=== PATIENT | female | born 2005 | race Caucasian/White ===

== ENCOUNTER 2024-11-16 20:15 | Emergency (ER) | payer OTHER, SELFPAY ==
[2024-11-16 20:16] VITALS: BMI 29.7
--- NOTE | 2024-11-16 20:31 | PD.EDFALL ---
ED Fall Injury RME/HPI General Chief Complaint: Fall Stated Complaint: FALL CHIN R HAND AND L KNEE Time Seen by Provider: 11/16/24 20:19 Arrival date/time: 11/16/24 20:15 RME / HPI RME / HPI Narrative: This section includes all my notes and documentations, including HPI, PE, and ED course. Prudencio Long MD HPI: 19yo female here for a fall a few hours ago. Patient got caught up in her dog's leash and was pulled out of her wheelchair. She fell forward. No loss of consciousness. She landed on her chin and right wrist and left knee. Patient has chin pain, right wrist pain, and left knee pain. No chest pain or abdominal pain. No other complaints reported. ROS: All negative except as documented in HPI. Physical Exam: General: Alert and oriented. In obvious pain. Eyes: Conjunctivae and lids clear. EOMI. PERRL. ENT: No signs of head trauma. Neck: Supple. No tenderness. Heart: RRR. Lungs: No respiratory distress. Good air movement. No rhonchi, wheezing, rales. Chest: No tenderness. Abdomen: Soft and nontender. Normal bowel sounds. No distension. No rebound or guarding. Back: No tenderness. Skin: Warm and dry. On her chin, there is a 1.5 cm full skin thickness laceration gaping open. Neuro: Alert and oriented X 3. Cranial Nerves II-XII grossly intact. No peripheral motor deficits. Musculoskeletal: Right wrist and left knee are tender on palpation. All other major joints and bones are not tender with no limited ROM. I reviewed all diagnostic test results. My interpretation of the left knee x-ray is NAD. My interpretation of the right wrist x-ray is NAD. My review of the CT facial bones report is NAD. My review of the CT cervical spine report is NAD. Blood tests are unremarkable. At this point, diagnoses include Chin laceration, Right wrist sprain, and Contusion of left knee. Treatment here included right wrist splint, wound care, Morphine, Toradol, Tdap, Bacitracin, NS, and Ancef. Recommend outpatient management. Significant improvement noted. Based on my best medical judgment, made decision no further evaluation or treatment indicated at this time. Patient understands and agrees to the discharge instructions customized and printed, see below. Discharge Instructions from Dr. Long printed for you: 1. Fortunately, there is no very serious injury. Such as brain injury or broken bone or internal organ injury. 2. The chin laceration was repaired with 3 stitches. -- Keep the current dressing intact for 24 hours. -- After 24 hours, change the dressing once daily. -- First remove the dressing gently. If it does not come off easily, run water through it until it comes off easily. -- Then gently wash with soap and water. -- After completely drying, apply antibiotic ointment and new dressing. -- See your doctor or return here in 5 days for suture removal. Total of 3 stitches. 3. For the right wrist sprain, wear the wrist splint for 3 days for help needed to heal. Apply ice for 20 minutes every 2-3 hours today and tomorrow. Ibuprofen 800 mg every 6-8 hours today and tomorrow to decrease inflammation then as needed. Elevate above the heart level for 3 days as much as possible. Placing your right hand on your head is a good method. 4. For your left knee contusion, decreased weightbearing using a stick or cane and elevate above the waist level for 3 days. Apply ice for 20 minutes every 2-3 hours today and tomorrow. Tylenol with codeine for severe pain. 5. Wound care of your multiple skin abrasions as instructed in the attached handout. Take Keflex to prevent infection. 6. See a private doctor on 11/18/2024 for recheck and further care, to make sure you are healing without any complications. Ask for help until you are completely better. 7. Seek immediate medical care with worsening or with any concerns. Prudencio Long MD Related Data Previous Rx's ?Medication ?Instructions ?Recorded acetaminophen 300 mg-codeine 30 mg 2 tab PO Q8H PRN pain #20 tabs 11/16/24 tablet cephalexin 500 mg capsule 500 mg PO BID 3 days #6 caps 11/16/24 ibuprofen 800 mg tablet 800 mg PO Q8H PRN pain #30 tabs 11/16/24 Allergies Allergy/AdvReac Type Severity Reaction Status Date / Time No Known Allergies Allergy Verified 11/16/24 20:21 Review of Systems Review of Systems Systems Reviewed: All systems reviewed, normal except as documented Past Medical History Social History SMOKING STATUS: Never smoker ED Exam Narrative Physical exam: As noted in HPI. Course Quality Measures none Orders Category Date Time Status Miscellaneous Nursing Order NOW Care 11/16/24 21:59 Completed Saline [Insert IV] NOW Care 11/16/24 20:34 Completed Splint / Immobilizer STAT Care 11/16/24 21:59 Completed Wound Care [Wound Care] NOW Care 11/16/24 20:[address] cervical spine wo con Stat Exams 11/16/24 20:[address] facial bones wo con Stat Exams 11/16/24 20:36 Completed XR knee LT 3V Stat Exams 11/16/24 20:37 Completed XR wrist comp RT min 3V Stat Exams 11/16/24 20:37 Completed BMP [Basic Metabolic Panel] Stat Lab 11/16/24 21:16 Completed CBC Stat Lab 11/16/24 21:16 Completed Magnesium Stat Lab 11/16/24 21:16 Completed PT [Prothrombin Time with INR] Stat Lab 11/16/24 21:16 Completed PTT [Partial Thromboplastin Time] Stat Lab 11/16/24 21:16 Completed Bacitracin Oint pkt Med 11/16/24 20:34 Discontinued 1 gm TOP X1 ONE Ketorolac Inj [Toradol Inj] Med 11/16/24 20:34 Discontinued 30 mg IVP X1 ONE Morphine Inj Med 11/16/24 20:34 Discontinued 4 mg IVP X1 ONE Sodium Chloride 0.9% 1000 ml [Ns] 1,000 ml Med 11/16/24 20:34 Discontinued IV 999 mls/hr TET,DIP/PERT AC (Adult)-Tdap [Boostrix Adult (Tdap) Med 11/16/24 20:34 Discontinued Vacc] 0.5 ml IMI .ONCE ONE ceFAZolin/D5W 2 GM IV [Ancef 2gm Ivpb] Med 11/16/24 20:34 Discontinued 2 gm in 100 ml IV X1 Vital Signs Vital signs: Vital Signs Temperature 98.9 F 11/16/24 20:32 Pulse Rate 90 11/16/24 20:32 Respiratory Rate 18 11/16/24 20:32 Blood Pressure 133/87 H 11/16/24 20:32 Pulse Oximetry (%) 100 11/16/24 20:32 Oxygen Delivery Method Room Air 11/16/24 20:32 PROCEDURES: Laceration Laceration 1: Site: face (chin) Size (cm): 1.5 Description: linear Depth: simple, single layer Local Anesthetic: lidocaine 1% Amount of anesthesia used (mL): 3 Pre-repair: irrigated extensively Skin layer closed with: nylon Suture size (cm): 4-0 Number of sutures: 3 Technique: simple, interrupted Fall MDM Narrative MDM Narrative:: 19yo female here for a fall. Patient got caught up in her dog's leash and was pulled out of her wheelchair. No loss of consciousness. Patient has chin pain, right wrist pain, and left knee pain. No chest pain or abdominal pain. No other complaints reported. Patient data External records reviewed:: [facility] previous records (Per chart review, patient has no previous ED visits or admissions to this facility.) Clinical information provided by:: patient Social determinants that could affect healthcare access:: none Patient has the following chronic illnesses:: POTS How is presenting disease/condition affected by chronic disease/condition?: uneffected by Evaluation data The following diagnostics were reviewed and interpreted by me:: lab results and radiology exam(s) Lab and/or radiology exams considered but not ordered:: none Interpretation Summary: I reviewed all diagnostic test results. My interpretation of the left knee x-ray is NAD. My interpretation of the right wrist x-ray is NAD. My review of the CT facial bones report is NAD. My review of the CT cervical spine report is NAD. Blood tests are unremarkable. Medications / Prescriptions Medications or Prescriptions considered but not ordered:: none Medication administrations:: Medication Administration History Discontinued Medications Bacitracin (Bacitracin Oint 1 Gm Packet) 1 gm TOP X1 ONE Stop: 11/16/24 20:35 Last Admin: 11/16/24 21:27 Dose: 1 gm Documented By: DT Diphtheria/Tetanus/Acell Pertussis (Diphth,Pertuss(Acell),Tet Vac 0.5 Ml Syr- Adult) 0.5 ml IMi .ONCE ONE Stop: 11/16/24 20:35 Last Admin: 11/16/24 21:34 Dose: 0.5 ml Documented By: DT Cefazolin Sodium (Ancef 2gm Ivpb) 2 gm in 100 mls @ 200 mls/hr IV X1 ONE Stop: 11/16/24 21:03 Last Infusion: 11/16/24 21:50 Dose: Infused Documented By: Admin: 11/16/24 21:20 Dose: 200 mls/hr Documented By: DT Sodium Chloride (Ns) 1,000 mls @ 999 mls/hr IV .Q1H1M ONE Stop: 11/16/24 21:34 Last Infusion: 11/16/24 22:24 Dose: Infused Documented By: Admin: 11/16/24 21:18 Dose: 999 mls/hr Documented By: DT Ketorolac Tromethamine (Ketorolac Inj 30 Mg/Ml Vial) 30 mg IVP X1 ONE Stop: 11/16/24 20:35 Last Admin: 11/16/24 21:24 Dose: 30 mg Documented By: DT Morphine Sulfate (Morphine Sulf Inj 10 Mg/Ml Vial) 4 mg IVP X1 ONE Stop: 11/16/24 20:35 Last Admin: 11/16/24 21:25 Dose: 4 mg Documented By: DT Morphine, Toradol, Tdap, Bacitracin, NS, Ancef Consultations Consultation(s) initiated? (list below): No Diagnosis Fall Differential Diagnosis: syncope, dislocation of shoulder region, fracture of wrist, compression fracture, concussion with loss of consciousness, concussion without loss of consciousness and other Most likely diagnosis given after review of the tests above:: Chin laceration, Right wrist sprain, Contusion of left knee Admission Indicated Admission indicated?: not indicated Explain why admission is indicated or not indicated:: With significant improvement and no condition needing emergent intervention, there was no indication for admission. Admission Request Was there a request for admission?: No Disposition Plan Disposition Plan: Discharge Discharge Attestation Discharge Attestation: The patient and all family members were given an opportunity to ask questions and understood the discharge instructions. Discharge instructions specifically effects, indications for sooner follow up or return to the emergency department, and the expected course of current diagnosis. Patient condition: Stable Discharge Plan Plan Patient Disposition: HOME (Self Care) Prescriptions/Referrals Prescriptions/Med Rec: New ibuprofen 800 mg tablet 800 mg PO Q8H PRN (Reason: pain) Qty: 30 0RF acetaminophen-codeine 300-30 mg tablet 2 tab PO Q8H MDD 6 PRN (Reason: pain) Qty: 20 0RF cephalexin 500 mg capsule 500 mg PO BID 3 Days Qty: 6 0RF Referrals: No Primary/Family,Physician [Primary Care Provider] - In 1 week Problem List Clinical Impression: Chin laceration, Right wrist sprain, Contusion of left knee Patient/Caregiver Discharge Instructions Discharge Activity: activity as tolerated Education Materials: ED Contusion, Lower Extremity, ED Laceration: All Closures, ED Wrist Sprain Additional Instructions: Discharge Instructions from Dr. Long printed for you: 1. Fortunately, there is no very serious injury. Such as brain injury or broken bone or internal organ injury. 2. The chin laceration was repaired with 3 stitches. -- Keep the current dressing intact for 24 hours. -- After 24 hours, change the dressing once daily. -- First remove the dressing gently.? If it does not come off easily, run water through it until it comes off easily. -- Then gently wash with soap and water. -- After completely drying, apply antibiotic ointment and new dressing. -- See your doctor or return here in 5 days for suture removal.? Total of 3 stitches. 3. For the right wrist sprain, wear the wrist splint for 3 days for help needed to heal. Apply ice for 20 minutes every 2-3 hours today and tomorrow. Ibuprofen 800 mg every 6-8 hours today and tomorrow to decrease inflammation then as needed. Elevate above the heart level for 3 days as much as possible. Placing your right hand on your head is a good method. 4. For your left knee contusion, decreased weightbearing using a stick or cane and elevate above the waist level for 3 days. Apply ice for 20 minutes every 2-3 hours today and tomorrow. Tylenol with codeine for severe pain. 5. Wound care of your multiple skin abrasions as instructed in the attached handout. Take Keflex to prevent infection. 6. See a private doctor on 11/18/2024 for recheck and further care, to make sure you are healing without any complications. Ask for help until you are completely better. 7. Seek immediate medical care with worsening or with any concerns. Print Language: Australian Stand Alone Forms: [employer] Award Info., Patient Portal Info Letter
[2024-11-16 20:32] VITALS: BP 133/87; PULSE 90; RESP 18; TEMP 37.2; O2SAT 100
--- NOTE | 2024-11-16 20:36 | XR_ITS ---
Examination: CT maxillofacial, without intravenous contrast. 2-D sagittal reconstructions. 3-D reconstructions. Date and time of exam:November 16, 2024, 2057 hours INDICATIONS: Injury today, patient fell with facial pain CTDI: vol (mGy):21.6 DLP: (mGycm):390 Technique: Multiple axial images of maxillofacial region, 3.0 mm slice thickness. 2-D sagittal and coronal reconstructions. 3-D reconstructions. Low dose protocols were performed. One or more of the following dose reduction techniques were used; automated exposure control, adjustment of the mA and/or KV according to patient size, use of iterative reconstruction technique. Findings: Frontal sinuses intact Orbital rims intact. No nasal bone fracture. No depression zygomatic arches. Pterygoid plates maxilla and the mandible intact. IMPRESSION: No acute facial fracture.
--- NOTE | 2024-11-16 20:36 | XR_ITS ---
Examination: CT cervical spine without contrast 2-D sagittal reconstructions 2-D coronal reconstructions 3-D reconstructions. Exam date and time:November 16, 20242057 hours INDICATIONS: Patient fell today with injury to the neck, neck pain CTDI:vol (mGy) 9.51 DLP: (mGycm) 180 Technique: Multiple 2 mm axial sections of the cervical spine have been obtained. The coronal and sagittal reconstructions have been obtained. 3-D reconstructions have been obtained. Low dose protocols were performed. One or more of the following dose reduction techniques were used; automated exposure control, adjustment of the mA and/or KV according to patient size, use of iterative reconstruction technique. Findings: Axial sections demonstrate intact base of the skull. C1 exhibit satisfactory relationship to the odontoid. No acute cervical vertebral body fracture seen. Alignment posterior spinous processes satisfactory. Impression: No acute cervical fracture.
--- NOTE | 2024-11-16 20:37 | XR_ITS ---
Examination: Knee, left , 3 views Technique: Knee AP, lateral, oblique 3 views Date and time of exam: November 16, 20242037 hours INDICATIONS: Patient fell today with injury to the knee, knee pain. FINDINGS: No acute fracture. No dislocation. No foreign body. IMPRESSION: No acute fracture.
--- NOTE | 2024-11-16 20:37 | XR_ITS ---
Examination: Wrist, right 3 views Technique: Wrist AP, oblique, lateral 3 views Date and time of exam: November 16, 2024, 2042 hours INDICATIONS: Patient fell today with injury to the wrist, wrist pain. FINDINGS: No fracture or dislocation. No foreign body IMPRESSION: No fracture or dislocation.
[2024-11-16] MEDS: SODIUM CHLORIDE 0.9% 1000 ML 1,000 ML 999 ML IV (21:18)
[2024-11-16] MEDS: ceFAZolin/D5W 2 GM IV 2 GM/100 ML BAG IV (21:20)
[2024-11-16] MEDS: KETOROLAC INJ 30 MG/ML VIAL IVP (21:24)
[2024-11-16] MEDS: MORPHINE SULF INJ 10 MG/ML VIAL 4 MG IVP (21:25)
[2024-11-16] MEDS: BACITRACIN OINT 1 GM PACKET TOP (21:27)
[2024-11-16 21:31] LABS: Basophils # (Auto) 0.1 Thou/mm3 (0.0-0.2); Basophils % (Auto) 1 % (0-2.5); Eosinophils # (Auto) 0.0 Thou/mm3 (0.0-0.5); Eosinophils % (Auto) 0 % (0-10); Hematocrit 40.6 % (36.0-46.0); Hemoglobin 14.5 g/dL (12.0-16.0); Immature Granulocytes Auto 0.02 Thou/mm3 (0.00-0.00); Lymphocytes # (Auto) 1.9 Thou/mm3 (1.0-4.8); Lymphocytes % (Auto) 24 % (10-50); Mean Corpuscular HGB Conc 35.7 g/dl (31.0-37.0); Mean Corpuscular Hemoglobin 31.1 pg (25.0-35.0); Mean Corpuscular Volume 87 fL (80-100); Monocytes # (Auto) 0.5 Thou/mm3 (0.0-0.8); Monocytes % (Auto) 6 % (0-12); Neutrophils # (Auto) 5.4 Thou/mm3 (1.8-7.7); Neutrophils % (Auto) 69 % (37-80); Nucleated Red Blood Cell # 0.00 Thou/mm3 (0.00-0.00); Nucleated Red Blood Cell % 0 /100 WBC (0); Platelet Count 248 Thou/mm3 (140-440); RDW Standard Deviation 40.0 fL (36.4-46.3); Red Blood Count 4.66 Miln/mm3 (4.00-5.20); White Blood Count 7.9 Thou/mm3 (3.6-11.0)
[2024-11-16] MEDS: DIPHTH,PERTUSS(ACELL),TET VAC 0.5 ML SYR- ADULT IMi (21:34)
[2024-11-16 21:49] LABS: Anion Gap 10 (7-16); BUN/Creatinine Ratio 14 Ratio (12-20); Blood Urea Nitrogen 11 mg/dL (9-23); Calcium 9.4 mg/dL (8.3-10.6); Carbon Dioxide 22.9 mMol/L (20.0-31.0); Chloride 110 mMol/L (98-107); Creatinine (Component) 0.8 mg/dL (0.6-1.3); Estimated Creatinine Clearance 125.4 mL/min (>60); Glucose 100 mg/dL (74-106); Magnesium 1.9 mg/dL (1.6-2.6); Osmolality,Calculated 284 (275-295); Potassium 3.7 mMol/L (3.4-5.1); Sodium 143 mMol/L (136-145); eGFR > 60 See Note
[2024-11-16 22:01] LABS: INR 1.0 (0.9-1.3); Partial Thromboplastin Time 27.9 Seconds (22.0-36.0); Prothrombin Time 11.1 Seconds (9.0-12.2)
[2024-11-16 22:14] VITALS: BP 101/72; PULSE 78; RESP 18; TEMP 36.9; O2SAT 98
== END 2024-11-16 22:28 | disposition home or self-care (01) ==
PROVIDERS: Emergency Provider Emergency Medicine
DX: S01.81XA Laceration without foreign body of other part of head, initial encounter (principal); S63.501A Unspecified sprain of right wrist, initial encounter; S80.02XA Contusion of left knee, initial encounter; Z23 Encounter for immunization; W19.XXXA Unspecified fall, initial encounter; S19.9XXA Unspecified injury of neck, initial encounter
CPT/HCPCS: 12011; 36415; 70486; 72125; 73110; 73562; 80048; 83735; 85025; 85610; 85730; 90715; 96361; 96365; 96375; 99284; J0689; J1885; J2270; J7030; A9270